=== PATIENT | male | born 1990 | race Caucasian/White ===

== ENCOUNTER 2024-03-04 10:27 | Emergency (ER) | payer OTHER ==
[2024-03-04 11:01] VITALS: RESP 18; BMI 29.0
[2024-03-04] MEDS ORDERED: ACETAMINOPHEN INJECTION 100 ML ONE (12:17)
[2024-03-04] MEDS ORDERED: PANTOPRAZOLE SODIUM 40 MG/100 ML BAG IVPB ONE (12:17)
[2024-03-04] MEDS: ACETAMINOPHEN 1000 MG/100 ML BAG IVPB ONE (12:23)
[2024-03-04] MEDS: SODIUM CHLORIDE 0.9% 500 ML INFUS.BAG IV ONE ×2 (12:23→15:33)
[2024-03-04 12:30] LABS: BASO % 0.3 % (0-2.0); EOS % 2.2 % (0-4.5); HEMOGLOBIN 9.3 GM/dL (11.7-16.9); LYMPH % 10.7 % (8-40); MCH 28.9 pg (25.7-33.7); MCHC 34.4 g/dl (32.0-35.9); MEAN CELL VOLUME 84.2 fl (80-96); MEAN PLT VOLUME 8.3 fl (7.5-11.1); NEUT % 78.8 % (42.8-82.8); PLATELET COUNT 222 10^3/uL (134-434); RBC 3.21 M/mm3 (4.00-5.60); RDW 13.1 % (11.9-15.9); WHITE BLOOD COUNT 5.9 K/mm3 (4.0-10.0)
[2024-03-04] MEDS: PANTOPRAZOLE SODIUM 40 MG VIAL IVPUSH ONE (12:32)
[2024-03-04 12:36] LABS: INR 1.05 (0.83-1.09); PROTHROMBIN TIME (PATIENT) 12.1 SEC (9.7-13.0)
[2024-03-04 12:39] LABS: ACTIVATED PTT 30.7 SECONDS (25.2-36.5)
[2024-03-04 12:59] LABS: ALBUMIN 3.4 g/dl (3.4-5.0); BLOOD UREA NITROGEN 12.2 mg/dL (7-18); CALCIUM 8.8 mg/dL (8.5-10.1)
[2024-03-04 13:02] LABS: CREATININE 1.2 mg/dL (0.55-1.3)
[2024-03-04 13:04] LABS: BILIRUBIN,TOTAL 0.4 mg/dL (0.2-1); TOT PROT 6.7 g/dl (6.4-8.2)
[2024-03-04] MEDS ORDERED: SODIUM CHLORIDE 0.9% 500 ML INFUS.BAG IV ONE (13:20)
[2024-03-04 13:53] LABS: HIV INTERPRETATION NEGATIVE (NEGATIVE)
[2024-03-04 16:13] VITALS: BP 106/60; PULSE 112; TEMP 99.3
== END 2024-03-04 16:10 | disposition home or self-care (01) ==
LOC: JER 10:27 → JERFT 10:27 → JER 16:10
PROC: 3E033NZ Introduction of Analgesics, Hypnotics, Sedatives into Peripheral Vein, Percutaneous Approach (ICD-10-PCS; principal; 2024-03-04)
PROC: 3E033GC Introduction of Other Therapeutic Substance into Peripheral Vein, Percutaneous Approach (ICD-10-PCS; 2024-03-04)
DX: J10.1 Influenza due to other identified influenza virus with other respiratory manifestations (principal); R53.1 Weakness; M79.10 Myalgia, unspecified site; R09.89 Other specified symptoms and signs involving the circulatory and respiratory systems; R00.0 Tachycardia, unspecified; Z20.822 Contact with and (suspected) exposure to COVID-19
CPT/HCPCS: 0241U-QW; 36415; 71045-TC-FY; 80053; 82272; 82962; 85025; 85610; 85730; 86803; 86850; 86900; 86901; 87389; 93005; 93010; 99285-25; J0131